=== PATIENT | female | born 1985 | race Caucasian/White ===

== ENCOUNTER 2017-09-23 06:38 | Day surgery (SDC) | payer BC ==
[~2017-09-23] VITALS: Ht 160 cm; Wt 83.9 kg
[~2017-09-23 06:38] MED LIST: ADVAIR 250/501 DISK; ADVAIR 500/501 DISK IH; COMBIVENT200 INHALA IH; DULERA 100 MCG/13 GM IH; DULERA 200 MCG/13 GM IH; DuoNeb IH; ENDOCET 5-3251 EACH PO; HEARTBURN RELIE75 MG PO; IBUPROFEN800 MG PO; IRON325 MG PO; LORAZEPAM0.5 MG PO; MOTRIN100 MG PO; Motrin PO; PRENATABS RX T1 EACH PO; PROAIR HFA8.5 GM IH; PROMETHAZINE-P118 M1 PO; PROVENTIL,2.5 MG/3 M IH; SERTRALINE HCL100 MG PO; TAMIFLU75 MG PO; TYLENOL EXTRA500 MG PO; TYLENOL325 M1 PO; ZOLOFT100 MG PO
[2017-09-23 07:05] VITALS: BP 123/72
[2017-09-23] MEDS ORDERED: NORCO 5/3251 TABLET PO (09:37)
[2017-09-23] MEDS ORDERED: MOTRIN800 MG PO (09:37)
[2017-09-23 10:11] VITALS: BP 125/68
[2017-09-23 11:03] VITALS: BP 142/70
== END 2017-09-23 11:12 | disposition home or self-care (01) ==
LOC: SDC 06:38
DX: N92.1 Excessive and frequent menstruation with irregular cycle (principal); N84.0 Polyp of corpus uteri; N80.0 Endometriosis of uterus; Z87.891 Personal history of nicotine dependence; K21.9 Gastro-esophageal reflux disease without esophagitis; E66.9 Obesity, unspecified; Z68.31 Body mass index [BMI] 31.0-31.9, adult; Z83.3 Family history of diabetes mellitus; Z82.49 Family history of ischemic heart disease and other diseases of the circulatory system; Z80.0 Family history of malignant neoplasm of digestive organs; Z88.1 Allergy status to other antibiotic agents
CPT/HCPCS: 84702; 88305; J0131; J0330; J1100; J1885; J2250; J2405; J3010